=== PATIENT | female | born 1995 | race Caucasian/White ===

== ENCOUNTER 2021-04-24 06:16 | Inpatient (IN) | payer MEDICAID ==
[~2021-04-24] VITALS: Ht 167.6 cm; Wt 102.3 kg
[2021-04-24] VITALS (52 sets, daily range): BP systolic 94–147; BP diastolic 53–86; PULSE 73–141; TEMP 97.5–100.2
--- NOTE | 2021-04-24 06:20 | NUR ---
0620-39.5 G1L0 GBS negative patient of Dr. Bradley to LDR 3 with complaints of SROM at 0530 clear and possible leaking since 1300 yesterday off and on . SVE by TAMIE Davis /2 Amnitest +. Dr. Saleh updated and orders to admit patien recieved. 0700-IV to left forearm, blood collected and sent to lab. Consents reviewed and signed. 0715-LR and Pitocin started, see EMAR.
[2021-04-24] MEDS ORDERED: PRENATAL (07:14)
[2021-04-24 07:22] LABS: BASO % 0.2 % (0.0-2.0); EOS # 0.1 K/mm3 (0.0-0.7); EOS % 0.9 % (0.0-4.0); GRAN # 9.2 K/mm3 (1.4-6.5); GRAN % 75.6 % (42.2-75.2); HEMOGLOBIN 12.7 g/dl (12.5-16.0); LYMPH # 2.1 K/mm3 (1.2-3.4); LYMPH % 17.1 % (20.0-51.0); MEAN CELL VOLUME 86 fl (80.0-100.0); MEAN CORPUSCULAR HEMOGLOBIN 30 pg (27-31); MEAN CORPUSCULAR HGB CONC 35 g/dl (33.0-37.0); MEAN PLATELET VOLUME 9.7 fl (7.4-10.4); MONO # 0.7 K/mm3 (0.1-0.6); MONO % 5.3 % (1.7-9.3); PLATELET COUNT 375 K/mm3 (130-400); RED BLOOD COUNT 4.26 M/mm3 (4.10-5.30); REDCELL DISTRIBUTION WIDTH-CV 13.3 % (11.5-14.5)
[2021-04-24 07:29] LABS: HEMATOCRIT 36.5 % (37.0-47.0)
--- NOTE | 2021-04-24 08:30 | NUR ---
0830-Dr. Saleh to patient room. Reviews plan of care with patient. 0840-Pateint calls out ot get up to bathroom. Returns to bedside standing and leaning into bed. Difficulty tracing contractions via toco.
[2021-04-24 09:40] LABS: TRICYCLIC ANTIDEPRESS URINE NEGATIVE
--- NOTE | 2021-04-24 09:55 | NUR ---
0955- Paitent requests epidural. Standing at bedside swaying and leaning forward. Difficulty maintaining continuous monitoring with position changes frequently from patient. 1055-Patient to bed for epidural placement. PHILIPPE Mayberry to room. 1057-Test dose administered by PHILIPPE Mayberry. VSS Tolerated procedure well. Repositioned WL. Updated on safety and plan of care. 1140-Betts placed per protocol. SVE following .
--- NOTE | 2021-04-24 13:15 | NUR ---
1315-Dr. Funk to room. Assuming care of patient. SVE by /. Repostioned WL with peanut ball.
--- NOTE | 2021-04-24 16:00 | NUR ---
1600-Reported off to charge nurseTAMIE Davis RN who is wathcing FHR monitor at this time.
--- NOTE | 2021-04-24 17:30 | NUR ---
173-SVE by TAMIE Del Valle /+1. Dr. Funk who is on unit notified at desk. 175-Resumed patient care. Patient set up for delivery. Maternal heart rate tachycardic, Dr. Funk notified who is at unit desk. Maternal temp also reported 100.2. Orders to push with patient. 1800-Began pushin with patient. Patient moves vertex well. 1809-Updated Dr. Funk with pushing efforts and FHR decels following pushing. MD to patient room and begins pushing with patient. 1829-Bedside shift report given to TAMIE Ramos oncoming nurse.
--- NOTE | 2021-04-24 18:45 | NUR ---
REPORT REC'D FROM TAMIE HERNANDEZ/ TRANSFER OF CARE. PT PUSHING UPON ARRIVAL TO THE ROOM WITH DR. SAUNDERS PRESENT. PT PUSHING EFFECTIVELY WITH CTX.
--- NOTE | 2021-04-24 19:00 | NUR ---
1900 VIABLE INFANT MALE
--- NOTE | 2021-04-24 19:15 | NUR ---
1899- VIABLE INFANT MALE. DRIED AND STIMULATED ON MOTHER'S ABDOMEN. CORD. 1903- PLACENTA DELIVERED INTACT 1904- PIT BOLUS INFUSING AT 333 ML/HR. IV PATENT AND INTACT. NO PAIN, ERYTHEMA, OR EDEMA NOTED. 1910- EPIDURAL PUMP TURNED OFF. 1914- PT DENIES ANY PAIN AT THIS TIME. SKIN TO SKIN WITH . 1999- EDUCATION PROVIDED TO PT ABOUT APPROPRIATE BLEEDING AND FIRM FUNDUS. PT DEMONSTRATES UNDERSTANDING. 2014- PIT BOLUS COMPLETED. IV SL. 2024- SCHEDULED TYLENOL PO GIVEN. PT DENIES ANY PAIN AT THIS TIME. PT SITTING UP IN BED EATING. PAIN MANAGEMENT OPTIONS D/W PT.
--- NOTE | 2021-04-24 22:55 | NUR ---
2144- PT STILL UNABLE TO MOVE RT LEG AND REPORTS IT STILL FEELING NUMB. RN ASSIST X2 TO HELP PT TO W/C. [place], MESH UNDERWEAR, MIHIR PAD, ICE PACK AND TUCKS PAD APPLIED. 2199- PT TRANSFERRED TO PP ROOM 215 VIA W/C. ACCOMPANIED BY RN AND SIG. OTHER. INFANT IN [facility] EDUCATION PROVIDED TO PT ABOUT FREQUENCY OF PUMPING, BOTTLE FEEDING , VOID, PAIN MEDICATION, CALLING FOR HELP TO BATHROOM. ORIENTED TO ROOM. 221- BREAST PUMP SET UP FOR PT. EDUCATION PROVIDED ON HOW TO CLEAN EQUIPMENT, FLANGE SIZES, AND FREQUENCY. LANOLIN CREAM PROVIDED TO PT. EXPLAINED TO PT ABOUT FLANGE SIZE AND THE THE POSSIBLE NEED FOR A DIFFERNT SIZE BUT WILL CHECK WITH IN THE AM. PT BEGINNING TO PUMP. 2214- FOB AT BS AND FEEDING INFANT FORMULA. 2219- IBUPROFEN PO GIVEN. 222- PUMPING COMPLETE. 2 ML OUT OF RIGHT BREAST. COLOSTRUM IN ORAL SYRINGE AND LABELED AND STORED IN [place] IN NURSERY. 2240[facility]. POC D/W PT AND SIG. OTHER. PT VERBALIZES UNDERSTANDING. CALL LIGHT WITHIN REACH. PT DENIES ANY FURTHER NEEDS AT THIS TIME.
--- NOTE | 2021-04-25 01:55 | NUR ---
PT UP TO BR. ASSIST X2. PT STILL FEELING NUMBNESS IN RT LEG BUT ABLE TO AMBULATE TO BATHROOM WITH ASSIST. PT ABLE TO VOID W/O ANY DIFFICULTIES. VOIDED 600 CLEAR, BLOODY URINE. TAUGHT PT MIHIR CARE AND HOW TO CHANGE PAD. FUNDUS FIRM, MIDLINE AT1 BELOW UMBILICUS WITH LIGHT LOCHIA AND PT ABLE TO AMBULATE BACK TO BED WITH ASSIST X2. SCHEDULED TYLENOL PO GIVEN. PT HAVING MINIMAL PAIN. PT REPORTS THAT SHE PUMPED AND GOT ABOUT 2 CCS OF COLOSTRUM EXPRESSED AND SYRINGE FED TO . CALL LIGHT WITHIN REACH.
[2021-04-25 04:45] VITALS: BP 110/61; PULSE 75; TEMP 97.3
--- NOTE | 2021-04-25 04:45 | NUR ---
PT UP TO BR WITH X1 ASSIST. STEADY GAIT. PT ABLE TO VOID W/O DIFFICULTY. CLEAR, YELLOW URINE, LIGHT LOCHIA. MIHIR CARE AND PAD CHANGED PERFORMED BY PT. PT ABLE TO AMBULATE BACK TO BED W/O ANY ISSUES. PT REPORTS SOME DISCOMFORT TO PERINEAL AREA. ICE PACK AND TUCKS APPLIED. PAIN MEDICATION OFFERED BUT PT DECLINES AT THIS TIME AND STATES SHE CAN WAIT UNTIL HER IBUPROFEN IS DUE AND THAT PAIN IS TOLERABLE AT THIS TIME. SIG. OTHER REMAINS AT BS AND SUPPORTIVE AND HELPFUL IN CARES FOR HER AND BABY. PT HOLDING AND BOTTLE FEEDING AND REPORTS THAT AFTER FEEDING NB WILL USE THE BREAST PUMP. PT HAS BEEN DOING A FANTASTIC JOB AT PUMPING FREQUENTLY AND FEEDING INFANT WITH ORAL SYRINGE WHATEVER COLOSTRUM IS EXPRESSED. NO PHYSICAL CHANGE IN ASSESSMENT. VSS. CALL LIGHT WITHIN REACH AND DENIES ANY FURTHER NEEDS AT THIS TIME.
[2021-04-25 07:10] VITALS: BP 101/64; PULSE 80; TEMP 97.6
--- NOTE | 2021-04-25 10:25 | NUR ---
Initial visit; Parents thanked Document Control Supervisor for offering congratulations and God's blessings for the of their son. Document Control Supervisor thanked family for choosing [facility].
[2021-04-25 12:00] VITALS: BP 112/70; PULSE 91; TEMP 97.4
--- NOTE | 2021-04-25 12:00 | NUR ---
1200RN AT BEDSIDE TO ASSESS BREASTPUMP FLANGE SIZE. FLANGE SIZE NOTED TO BE APPROPRIATE. PATIENT EDUCATED ON HOW FLANGE SHOULD FIT AND HOW TO USE PUMP. PATIENT VERBALIZED UNDERSTANDING. WHILE IN THE ROOM, PATIENT REPORTS INCREASED DISCOMFORT AT REPAIR SITE. PATIENT STATES THAT SHE IS NOT CURRENTLY USING AN ICE PACK. RN EDUCATED AND ENCOURAGED PATIENT TO USE ICE PACK, TUX, AND SPRAY BOTTLE. PATIENT VERBALIZED UNDERSTANDING. EDUCATION PROVIDED ON SITZ BATH AND PATIENT VERBALIZED DESIRE TO TRY. SITZ BATH PROVIDED TO PATIENT. PATIENT TO CALL IF HELP NEEDED.
--- NOTE | 2021-04-25 13:29 | NUR ---
SW responded to consult. The patient has a history of marijuana use. SW met with the patient and her fiance/father other baby, Silas Lamb. The patient lives in [place] with Silas. Silas works at [employer] and the patient will be starting a new job after maternity leave. The patient reports that she has a crib, carseat and all supplies for baby. They are not going to apply for WIC. SW addressed the patient's history of marijuana use. The patient reports that she smoked marijuana before she was and has not used since. She has no concerns about using again. The patient's UDS was negative. The patient and her fiance had no concerns for SW. ALLYSON updated the RN.
[2021-04-25 17:14] VITALS: BP 92/53; PULSE 100; TEMP 97.6
[2021-04-25 21:00] VITALS: BP 101/60; PULSE 97; TEMP 97.7
[2021-04-26 03:00] VITALS: BP 110/64; PULSE 79; TEMP 97.8
[2021-04-26 08:03] VITALS: BP 131/86; PULSE 107; TEMP 97.4
[2021-04-26] MEDS ORDERED: MOTRIN 800800 MG/TAB PO (08:22)
== END 2021-04-26 14:40 | disposition home or self-care (01) | DRG 768 ==
LOC: LDRO 06:16 → OB 06:40 → LDR 06:40 → OB 04-25
PROVIDERS: ADMIT Obstetrics & Gynecology
PROC: 10E0XZZ Delivery of Products of Conception, External Approach (ICD-10-PCS; principal; 2021-04-24)
PROC: 0DQR0ZZ Repair Anal Sphincter, Open Approach (ICD-10-PCS; 2021-04-24)
DX: O99.02 Anemia complicating childbirth (principal); Z37.0 Single live birth; O70.20 Third degree perineal laceration during delivery, unspecified; D64.9 Anemia, unspecified; O69.81X0 Labor and delivery complicated by cord around neck, without compression, not applicable or unspecified; Z3A.39 39 weeks gestation of pregnancy; Z23 Encounter for immunization
CPT/HCPCS: J2590; J7120